=== PATIENT | female | born 2000 | race Caucasian/White ===

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

== ENCOUNTER 2021-02-04 18:58 | Emergency (ER) | payer SELFPAY ==
[~2021-02-04] VITALS: Ht 149.9 cm; Wt 80.2 kg
[2021-02-04 19:20] VITALS: BP 150/83
[2021-02-04] MEDS ORDERED: AZIT500T4 PO (19:44)
--- NOTE | 2021-02-04 19:44 | PHYS DOC ---
Past History Past Medical History: Asthma, Other Additional Past Medical Histor: seasonal allergies (FAVIO PAREDES APRN) Past Surgical History: No Surgical History (FAVIO PAREDES APRN) Smoking: Non-smoker Alcohol Use: None Drug Use: None (FAVIO PAREDES APRN) General Adult EDM: Chief Complaint: SORE THROAT HPI: HPI: Patient is a 20-year-old female who presents to the emergency department today for a 3-week history of cough, ear pain and sore throat. Patient reports that she was seen at [facility] yesterday and had a negative Covid and influenza test. Patient states that she has a history of asthma and has been using her inhalers as directed. Patient is mildly tachycardic with a heart rate of 103. Patient is afebrile currently. She denies any shortness of breath, chest pain, fevers or sick exposure. (FAVIO PAREDES APRN) Review of Systems: Review of Systems: Constitutional: See HPI HENT: See HPI Respiratory: See HPI Cardiovascular: See HPI (FAVIO PAREDES APRN) Allergies: Allergies: Allergies Coded Allergies Type Severity Reaction Last Updated Verified Penicillins Allergy Intermediate 02/04/21 Yes lactose Allergy Unknown 02/04/21 Yes (FAVIO PAREDES APRN) Physical Exam: PE: Constitutional: Well developed, well nourished, no acute distress, non-toxic appearance. [] HENT: Normocephalic, atraumatic, bilateral external ears normal, oropharynx moist, 3+ tonsillar enlargement without exudate, erythematous oropharynx, uvula midline, no trismus or phonation changes, no oral exudates, nose normal. [] Eyes: PERRLA, EOMI, conjunctiva normal, no discharge. [] Neck: Normal range of motion, no palpable lymphadenopathy, no tenderness, supple, no stridor. [] Cardiovascular:Heart rate regular rhythm, no murmur [] Lungs & Thorax: Bilateral breath sounds clear to auscultation [] Abdomen: Bowel sounds normal, soft, no tenderness, no masses, no pulsatile masses. [] Skin: Warm, dry, no erythema, no rash. [] Back: Normal range of motion Extremities: No tenderness, no cyanosis, no clubbing, ROM intact, no edema. [] Neurologic: Alert and oriented X 3, normal motor function, normal sensory function, no focal deficits noted. [] Psychologic: Affect normal, judgement normal, mood normal. [] (FAVIO PAREDES APRN) Current Patient Data: Vital Signs: Vital Signs Date Time Temp Pulse Resp B/P (MAP) Pulse Ox O2 Delivery O2 Flow Rate FiO2 02/04/21 19:20 98.9 115 20 150/83 (105) 100 (FAVIO PAREDES APRN) EKG: EKG: [] (FAVIO PAREDES APRN) Radiology/Procedures: Radiology/Procedures: [] (FAVIO PAREDES APRN) Heart Score: C/O Chest Pain: No Risk Factors: Risk Factors: DM, Current or recent (<one month) smoker, HTN, HLP, family history of CAD, obesity. Risk Scores: Score 0 - 3: 2.5% MACE over next 6 weeks - Discharge Home Score 4 - 6: 20.3% MACE over next 6 weeks - Admit for Clinical Observation Score 7 - 10: 72.7% MACE over next 6 weeks - Early Invasive Strategies (FAVIO PAREDES APRN) Course & Med Decision Making: Course & Med Decision Making Pertinent Labs and Imaging studies reviewed. (See chart for details) [] Patient presents to the emergency department for a 3-week history of cough, earache and sore throat. Patient was rapid tested for strep which was negative. Patient had no palpable lymphadenopathy and has not been febrile. Due to the size of patient's tonsils and her symptoms onset, she will be treated with an antibiotic. Patient treated in the emergency department with her first dose of the antibiotic and also ibuprofen. Patient advised to increase fluids take Tylenol and ibuprofen for pain and complete the antibiotic and follow-up with her doctor. I discussed with patient all findings and diagnostic testing as well as the need to follow-up with PCP for further evaluation and treatment or return to the ER if any new or worsening symptoms. Strict return precautions were also discussed at length. Patient voiced understanding and agreement with the plan. Patient is hemodynamically stable at the time of disposition. (FAVIO PAREDES APRN) Dragon Disclaimer: Dragon Disclaimer: This electronic medical record was generated, in whole or in part, using a voice recognition dictation system. (FAVIO PAREDES APRN) Departure Departure: Impression: Primary Impression: Pharyngitis Qualified Codes: J02.9 - Acute pharyngitis, unspecified Disposition: HOME / SELF CARE / HOMELESS Condition: GOOD Referrals: PCP,NORMA (PCP) Patient Instructions: Strep Throat Additional Instructions: You were seen in the emergency department today for cough, ear pain and sore throat. Your rapid strep test was negative in the emergency department. However due to the appearance of your tonsils and your symptom onset, you will be treated with an antibiotic. Please take the antibiotic as directed. Please make sure that you start and finish it completely. For your pain you can take Tylenol and ibuprofen. You can also perform warm salt water gargles. Increase your fluids and rest. Please follow-up with your primary care provider tomorrow regarding your ER visit. Please return to the emergency department if you develop shortness of breath, difficulty breathing or swallowing, high fevers refractory to treatment, intractable nausea or vomiting, abdominal pain or any new or worsening concerns. Scripts Azithromycin (AZITHROMYCIN TABLET) 500 Mg Tablet 1 TAB PO DAILY for strep throat for 4 Days, #4 TAB 0 Refills Prov: FAVIO PAREDES APRN 02/04/21 Dragon Disclaimer This chart was dictated in whole or in part using Voice Recognition software in a busy, high-work load, and often noisy Emergency Department environment. It may contain unintended and wholly unrecognized errors or omissions. (GALLO HANNA MD) Attending Signature Attending Signature I have participated in the care of this patient and I have reviewed and agree with all pertinent clinical information above including history, exam, and recommendations. (GALLO HANNA MD) FAVIO PAREDES APRN Feb 04, 2021 19:44 GALLO HANNA MD Feb 05, 2021 19:56
[2021-02-04] MEDS ORDERED: IBUPROFEN 600 MG TABLET. PO ONE (19:45)
[2021-02-04] MEDS ORDERED: AZITHROMYCIN 250 MG TABLET. PO ONE (19:45)
== END 2021-02-04 19:58 | disposition home or self-care (01) ==
LOC: ER 18:58
DX: J02.9 Acute pharyngitis, unspecified (principal); H92.09 Otalgia, unspecified ear; J45.909 Unspecified asthma, uncomplicated; Z88.0 Allergy status to penicillin; Z91.011 Allergy to milk products
CPT/HCPCS: 87070; 87880; 99283

== ENCOUNTER 2021-07-19 13:26 | Emergency (ER) | payer SELFPAY ==
[~2021-07-19] VITALS: Ht 149.9 cm; Wt 83.4 kg
[~2021-07-19 13:26] MED LIST changes: +AZIT500T4 PO
[2021-07-19 14:00] VITALS: BP 131/87
--- NOTE | 2021-07-19 14:39 | PHYS DOC ---
Past History Past Medical History: Asthma, Other Additional Past Medical Histor: seasonal allergies (FAVIO PAREDES APRN) Past Surgical History: No Surgical History (FAVIO PAREDES APRN) Smoking: Non-smoker Alcohol Use: None Drug Use: None (FAVIO PAREDES APRN) General Adult EDM: Chief Complaint: SORE THROAT HPI: HPI: Patient is a 20-year-old female who presents to the emergency department for sore throat and swelling x2 weeks. Patient reports that sometimes her throat is sore and swollen that it causes her to have vomiting. Patient denies any shortness of breath, cough or fevers. (FAVIO PAREDES APRN) Review of Systems: Review of Systems: Constitutional: See HPI HENT: See HPI Respiratory: See HPI GI: See HPI (FAVIO PAREDES APRN) Allergies: Allergies: Allergies Coded Allergies Type Severity Reaction Last Updated Verified Penicillins Allergy Intermediate 02/04/21 Yes lactose Allergy Unknown 02/04/21 Yes (FAVIO PAREDES APRN) Physical Exam: PE: Constitutional: Well developed, well nourished, no acute distress, non-toxic appearance. [] HENT: Normocephalic, atraumatic, bilateral external ears normal,2 tonsillar enlargement and erythema, no tonsillar exudate noted, uvula midline, no trismus or phonation changes, patient maintaining secretions, oropharynx moist, no oral exudates, nose normal. [] Eyes: PERRL, EOMI, conjunctiva normal, no discharge. [] Neck: Normal range of motion, no tenderness, left tonsillar lymphadenopathy, supple, no stridor. [] Cardiovascular:Heart rate regular rhythm, no murmur [] Lungs & Thorax: Bilateral breath sounds clear to auscultation [] Abdomen:soft and flat Skin: Warm, dry, no erythema, no rash. [] Back: No tenderness, normal ROM Extremities: No tenderness, no cyanosis, no clubbing, ROM intact, no edema. [] Neurologic: Alert and oriented X 3, normal motor function, normal sensory function, no focal deficits noted. [] Psychologic: Affect normal, judgement normal, mood normal. [] (FAVIO PAREDES APRN) Current Patient Data: Labs: Laboratory Tests Test 07/19/21 14:15 07/19/21 14:20 Influenza Type A (Rapid) Negative Influenza Type B (Rapid) Negative SARS-CoV-2 Antigen (Rapid) Negative Group A Streptococcus Rapid Negative Vital Signs: Vital Signs Date Time Temp Pulse Resp B/P (MAP) Pulse Ox O2 Delivery O2 Flow Rate FiO2 07/19/21 14:00 98.2 96 20 131/87 (102) 98 Room Air (FAVIO PAREDES APRN) EKG: EKG: [] (FAVIO PAREDES APRN) Radiology/Procedures: Radiology/Procedures: [] (FAVIO PAREDES APRN) Heart Score: C/O Chest Pain: N/A Risk Factors: Risk Factors: DM, Current or recent (<one month) smoker, HTN, HLP, family history of CAD, obesity. Risk Scores: Score 0 - 3: 2.5% MACE over next 6 weeks - Discharge Home Score 4 - 6: 20.3% MACE over next 6 weeks - Admit for Clinical Observation Score 7 - 10: 72.7% MACE over next 6 weeks - Early Invasive Strategies (FAVIO PAREDES APRN) Course & Med Decision Making: Course & Med Decision Making Pertinent Labs and Imaging studies reviewed. (See chart for details) Patient presents to the emergency department for sore throat and throat swelling x2 weeks. Patient's rapid strep test was negative. Patient's influenza and COVID test []. Patient Centor score is 3 points. She will be treated with an antibiotic for strep pharyngitis. Patient educated on symptomatic treatment. I discussed with patient all findings and diagnostic testing as well as the need to follow-up with PCP for further evaluation and treatment or return to the ER if any new or worsening symptoms. Strict return precautions were also discussed at length. Patient voiced understanding and agreement with the plan. Patient is hemodynamically stable at the time of disposition. (FAVIO PAREDES APRN) Dragon Disclaimer: Dragon Disclaimer: This electronic medical record was generated, in whole or in part, using a voice recognition dictation system. (FAVIO PAREDES APRN) Attending Co-Sign The patient was seen and interviewed as well as examined at the bedside. The chart was reviewed. The case was discussed. Agree with the plan of care. (KIP BARRETT DO) Departure Departure: Impression: Primary Impression: Pharyngitis Qualified Codes: J02.9 - Acute pharyngitis, unspecified Disposition: 01 HOME / SELF CARE / HOMELESS Condition: GOOD Referrals: PCP,NO (PCP) Patient Instructions: Viral and Bacterial Pharyngitis Additional Instructions: You are seen in the emergency department today for sore throat. Your rapid strep test was negative. Your flu and COVID test was negative also. However, it does appear that you have strep throat. You are being treated for strep throat with an antibiotic. Please start and finish it completely. Take Tylenol and ibuprofen for any pain or fevers. Increase your fluids. Perform warm salt water gargles. Follow-up with your primary care provider on Thursday regarding your ER visit. Return to the emergency department if you develop worsening of your pain, inability to swallow or maintain your secretions, shortness of breath, chest pain, intractable nausea or vomiting or high fevers refractory to treatment. Scripts Azithromycin (AZITHROMYCIN TABLET) 500 Mg Tablet 1 TAB PO DAILY for infection for 5 Days, #5 TAB 0 Refills Prov: FAVIO PAREDES APRN 07/19/21 FAVIO PAREDES APRN July 19, 2021 14:38 KIP BARRETT DO July 20, 2021 07:05
[2021-07-19 14:47] LABS: INFLUENZA A PATIENT NEGATIVE (NEGATIVE); INFLUENZA B PATIENT NEGATIVE (NEGATIVE)
[2021-07-19] MEDS ORDERED: AZIT500T4 PO (14:51)
== END 2021-07-19 14:56 | disposition home or self-care (01) ==
LOC: ER 13:26
DX: J02.9 Acute pharyngitis, unspecified (principal); J45.909 Unspecified asthma, uncomplicated; Z20.822 Contact with and (suspected) exposure to COVID-19
CPT/HCPCS: 87070; 87428; 87880; 99283